=== PATIENT | male | born 1960 | race Caucasian/White ===

== ENCOUNTER 2019-10-10 23:36 | Emergency (ER) | payer OTHER ==
--- NOTE | 2019-10-11 01:10 | EDM.PDOC ---
ED HPI GENERAL MEDICAL PROBLEM - General Chief Complaint: Abdominal Pain Stated Complaint: ABD PAIN Time Seen by Provider: 10/11/19 00:40 Source of Information: Reports: Patient, RN, RN Notes Reviewed History Limitations: Reports: No Limitations - History of Present Illness INITIAL COMMENTS - FREE TEXT/NARRATIVE: Bowen is a 59 yo male that comes to the ED with c/o lower chest/ upper abd pain along the midclavicular line. He rates the pain as dull, achy, and constant 6-8 /10. Pain started monday evening with no known injury to the area. He has tried ice, raymond wrap around his chest wall, ibuprofen, and acetaminophen without any relief. Lying down is the worse. Sitting is aggravating and up walking around is the least painful. He was able to golf 18 holes yesterday without problems- no issues swinging the clubs. He states that he has gotten very little sleep due to this pain over the past 3 nights. He denies nausea, vomiting , or diarrhea. Reports a bout of diaphoresis this evening as he was trying to get comfortable. His forehead is clammy here in ER. Denies any heart or lung history. Has had a previous EKG that he says was normal, gets an annual physical. Denies any history of GERD, ulcers, pancreatitis. Denies any recent flu like symptoms: body aches, chills, joint pains. His appetite has been decreased he feels cause he is not sleeping. Drinks alcohol socially. About 2 weeks ago, patient noticed a reddened area to the medial side of his right foot - about mid arch. states it was reddened with a possible bulleyes appearance. He did a telehealth visit with his PCP and was started on doxycycline 100mg bid 3 days ago. Onset: Gradual Onset Date: 10/07/19 Duration: Hour(s):, Day(s): (3), Constant Location: Reports: Chest, Abdomen, Radiates to (when lying down, the pain radiates through to his back) Quality: Reports: Ache, Dull Severity: Moderate Improves with: Reports: Other (walking around) Worsens with: Reports: Other (lying down) Associated Symptoms: Reports: Diaphoresis, Loss of Appetite left rib Pain Score (Numeric/FACES): 7 - Related Data Allergies Allergy/AdvReac Type Severity Reaction Status Date / Time No Known Allergies Allergy Verified 10/10/19 23:56 Home Meds: Home Meds Aspirin [Suad Chewable Aspirin] 81 mg PO DAILY 10/11/19 [History] Cholecalciferol (Vitamin D3) [Vitamin D] 5,000 unit PO DAILY 10/11/19 [History] Doxycycline [Doxycycline Hyclate] 100 mg PO BID 10/11/19 [History] Finasteride 1 mg PO DAILY 10/11/19 [History] Past Medical History HEENT History: Reports: Glaucoma Cardiovascular History: Reports: Hypertension - Infectious Disease History Infectious Disease History: Reports: Chicken Pox, Measles, Mumps - Past Surgical History GI Surgical History: Reports: Hernia, Inguinal Neurological Surgical History: Reports: Discectomy Musculoskeletal Surgical History: Reports: Other (See Below) Other Musculoskeletal Surgeries/Procedures:: Left knee ACL reconstruction Social & Family History - Tobacco Use Smoking Status *Q: Never Smoker - Caffeine Use Caffeine Use: Reports: Coffee, Soda - Recreational Drug Use Recreational Drug Use: No ED ROS GENERAL - Review of Systems Review Of Systems: Comprehensive ROS is negative, except as noted in HPI. ED EXAM, GI/ABD - Physical Exam Exam: See Below Exam Limited By: No Limitations General Appearance: Alert Eyes: Bilateral: Normal Appearance Head: Atraumatic Neck: Normal Inspection, Non-Tender Respiratory/Chest: No Respiratory Distress, Lungs Clear, Normal Breath Sounds Cardiovascular: Regular Rate, Rhythm, No Murmur GI/Abdominal Exam: Normal Bowel Sounds, Soft, Non-Tender, No Distention, No Mass (Male) Exam: Deferred Rectal (Males) Exam: Deferred Back Exam: Normal Inspection Extremities: Normal Inspection, Normal Capillary Refill Neurological: Alert, Oriented, Normal Cognition, No Motor/Sensory Deficits Psychiatric: Normal Affect, Normal Mood Skin Exam: Warm, Normal Color, Other (2.5 cm flat round erythematous area to pt' s right foot. there is a pinpoint black center that appears to be a scab. ) Lymphatic: No Adenopathy EKG INTERPRETATION EKG Date: 10/11/19 Time: 00:59 EKG Interpretation Comments: NSR. rate 58. old inferior infarct. EKG reassuring for no evidence of acute events Course - Vital Signs Last Recorded V/S: Last Vital Signs Temp 97.0 F 10/11/19 00:11 Pulse 65 06/05/20 00:11 Resp 14 10/11/19 00:11 BP 184/104 H 10/11/19 00:11 Pulse Ox 97 10/11/19 00:11 - Orders/Labs/Meds Orders: Active Orders 24 hr Category Date Time Status EKG Documentation Completion [RC] ASDIRECTED Care 10/11/19 00:55 Active Chest 2V [CR] Stat Exams 10/11/19 00:54 Taken EKG 12 Lead [EK] Routine Ther 10/11/19 00:54 Ordered Labs: Laboratory Tests 10/11/19 10/11/19 Range/Units 01:07 01:07 WBC 8.8 (4.5-11.0) K/uL RBC 5.41 (4.30-5.90) M/uL Hgb 16.5 H (12.0-15.0) g/dL Hct 48.5 (40.0-54.0) % MCV 90 (80-98) fL MCH 31 (27-31) pg MCHC 34 (32-36) % Plt Count 287 (150-400) K/uL Neut % (Auto) 79 H (36-66) % Lymph % (Auto) 13 L (24-44) % [place] % (Auto) 7 H (2-6) % Eos % (Auto) 1 L (2-4) % Baso % (Auto) 1 (0-1) % Sodium 141 (140-148) mmol/L Potassium 3.7 (3.6-5.2) mmol/L Chloride 103 (100-108) mmol/L Carbon Dioxide 28 (21-32) mmol/L Anion Gap 10.4 (5.0-14.0) mmol/L BUN 12 (7-18) mg/dL Creatinine 1.0 (0.8-1.3) mg/dL Est Cr Clr Drug Dosing 94.76 mL/min Estimated GFR (MDRD) > 60 (>60) Glucose 109 H (74-106) mg/dL Calcium 9.6 (8.5-10.1) mg/dL Total Bilirubin 1.1 H (0.2-1.0) mg/dL AST 18 (15-37) U/L ALT 36 (12-78) U/L Alkaline Phosphatase 88 (46-116) U/L C-Reactive Protein 0.05 (0.0-0.3) mg/dL Total Protein 7.6 (6.4-8.2) g/dL Albumin 4.3 (3.4-5.0) g/dL Globulin 3.3 (2.3-3.5) g/dL Albumin/Globulin Ratio 1.3 (1.2-2.2) Meds: Medications Discontinued Medications Generic Name Dose Route Start Last Admin Trade Name Chrisq PRN Reason Stop Dose Admin Baclofen 10 mg 10/11/19 02:13 Lioresal PO 10/11/19 02:14 ONETIME ONE - Radiology Interpretation Free Text/Narrative:: Chest xray is negative for any acute process. Radiology read pending Departure - Departure Time of Disposition: 02:21 Disposition: Home, Self-Care 01 Condition: Good Clinical Impression: Muscle pain - Discharge Information *PRESCRIPTION DRUG MONITORING PROGRAM REVIEWED*: No *COPY OF PRESCRIPTION DRUG MONITORING REPORT IN PATIENT XAVI: No Referrals: PCP,None [Primary Care Provider] - Forms: ED Department Discharge Care Plan Goals: activity as tolerated. use the norco for pain relief: 1 tab every 4 to 6 hours as needed. do not operative machinery or drive when taking this medication. Baclofen prescription provided. This is a muscle relaxer and you can use it at bedtime to help you relax. alternate ice and heat to the sore areas. Return to ED if pain worsens, new symptoms arise, or any other concerns. Sepsis Event Note - Evaluation Sepsis Screening Result: No Definite Risk - Focused Exam Vital Signs: Vital Signs Temp Pulse Resp BP Pulse Ox 10/11/19 00:11 97.0 F 65 14 184/104 H 97 10/11/19 00:02 97.0 F 65 14 184/104 H 97 Date Exam was Performed: 10/11/19 Time Exam was Performed: 02:18 - My Orders Last 24 Hours: My Active Orders 10/11/19 00:54 Chest 2V [CR] Stat EKG 12 Lead [EK] Routine 10/11/19 00:55 EKG Documentation Completion [RC] ASDIRECTED - Assessment/Plan Last 24 Hours: My Active Orders 10/11/19 00:54 Chest 2V [CR] Stat EKG 12 Lead [EK] Routine 10/11/19 00:55 EKG Documentation Completion [RC] ASDIRECTED Plan: plan to discharge home. chest xray, ekg, and labs were unremarkable and not able to provide definitive diagnosis. will advise to follow up if pain continues or worsens. rx for baclofen and norco for comfort at bedtime.
[2019-10-11] MEDS ORDERED: Baclofen 10 MG Tab PO ONE (02:13)
--- NOTE | 2019-10-11 10:22 | CR ---
CHEST: 2 view CLINICAL HISTORY:Chest pain COMPARISON:None FINDINGS: The heart size, pulmonary vascularity and hilar structures are normal. No infiltrate effusion or pneumothorax is seen. IMPRESSION: No acute cardiopulmonary process.
== END 2019-10-11 02:33 | disposition home or self-care (01) ==
LOC: JP.ED 23:36
DX: M79.18 Myalgia, other site (principal); I10 Essential (primary) hypertension; Z79.82 Long term (current) use of aspirin; Z79.899 Other long term (current) drug therapy
CPT/HCPCS: 36415; 71046; 80053; 85025; 86140; 93005; 99284; A9270